=== PATIENT | male | born 1955 | race Caucasian/White ===

== ENCOUNTER 2022-12-19 09:53 | Outpatient (CLI) | payer MEDICARE, BC, OTHER, SELFPAY | END 2022-12-19 09:54 | disposition home or self-care (01) | LOC: AMB 01-07 02:06 | PROVIDERS: Visit Provider Emergency Medicine | DX: R19.7 Diarrhea, unspecified (principal); R11.0 Nausea | CPT/HCPCS: A0425; A0427 ==

== ENCOUNTER 2022-12-19 10:14 | Emergency (ER) | payer MEDICARE, BC, OTHER, SELFPAY ==
[2022-12-19] VITALS (61 sets, daily range): BP systolic 104–156; BP diastolic 65–96; PULSE 64–99; RESP 16–18; TEMP 36.9–39.1; O2SAT 83–100
--- NOTE | 2022-12-19 10:51 | ED_ITS ---
HPI - Nausea/Vomiting/Diarrhea General Chief complaint: Nausea/Vomiting Stated complaint: nausea, diarrhea Time Seen by Provider: 12/19/22 10:22 History of Present Illness HPI Narrative: This 67-year-old male comes in with his . He arrived by ambulance reporting diarrhea with nausea for the past couple days. His states that he seems like he has emesis but he does not let it out of his mouth and apparently swallows that again. He does not report any abdominal pain. He arrives with a temperature of 101.2? F. he has not felt well for a couple days. He denies having any cough or shortness of breath. He does not report any dysuria or blood in the diarrhea. He has not had any recent antibiotic treatment. He does take alcohol regularly and he has had some withdrawal symptoms in the past. He is tremulous and his states that she notes that he has some tremor when doing certain intentional maneuvers but reports that this seems more pronounced now. She has noticed increased tremors when he has not had alcohol. His last drink was a couple days ago. Related Data Home Medications Medication Instructions Recorded Confirmed No Known Home Medications 12/19/22 12/19/22 Allergies Allergy/AdvReac Type Severity Reaction Status Date / Time No Known Drug Allergies Allergy Verified 12/19/22 10:29 Review of Systems 2 Status of ROS: Reports: 10 or more systems reviewed and unremarkable except as noted in History and below Narrative: Constitutional: No weight gain or loss. Eyes: No discharge. No vision changes. HENT: No congestion, no sore throat, no ear pain. Cardiovascular: No chest pain, no palpitations. Respiratory: No shortness of breath, no wheezes, no cough. Gastrointestinal: No abdominal pain, no vomiting. Nausea and diarrhea. Genitourinary: No dysuria, no hematuria. Musculoskeletal: Normal range of motion. Skin: No rashes, no pruritis. Neurological: No dizziness, weakness, sensory change, speech change. Endo/Heme/Allergies: No bruising or bleeding. No polydipsia. Pysch: no suicidality, no anxiety, no insomnia. All other systems reviewed and are negative. Exam Narrative: Exam Narrative: Constitutional: Well-developed, well-nourished, no acute distress. HEENT: Normocephalic, atraumatic. Neck: Normal range of motion. Nontender. Supple. Heart: Regular. No murmurs. Normal rate. Intact distal pulses. Lungs: Clear to auscultation. No chest discomfort. No wheezes, rhonchi, or rales. Abdomen: Normal bowel sounds. Nontender. No rebound tenderness. Genitalia: Deferred. Back: No midline tenderness. Normal range of motion. Extremities: Normal range of motion. No injury. Skin: Intact. No rash. Warm. No erythema or pallor. Neurologic: No altered sensation. No weakness. Alert and oriented. Tremor typ ical of alcohol withdrawal symptoms. Psychiatric: No suicidality. No anxiety or depression. No insomnia. Nursing notes and vitals signs are reviewed. Const: Vital Signs, click to edit/add: Vital Signs - 24 hr 12/19/22 10:25 12/19/22 10:35 12/19/22 10:45 Temperature 101.2 F H Pulse Rate 93 92 Pulse Rate [Pulse Oximeter] 96 Respiratory Rate 16 Blood Pressure Blood Pressure [Ri ght Upper Arm] 123/94 H Pulse Oximetry 97 95 96 Oxygen Delivery La [facility]od Room Air 12/19/22 11:00 12/19/22 11:07 12/19/22 11:15 Temperature Pulse Rate 93 92 95 Pulse Rate [Pulse Oximeter] Respiratory Rate 18 Blood Pressure 147/96 H Blood Pressure [Ri ght Upper Arm] Pulse Oximetry 95 95 [facility] 12/[facility]/22 11:30 12/19/22 11:32 12/19/22 11:45 Temperature Pulse Rate 96 93 91 Pulse Rate [Pulse Oximeter] Respiratory Rate 16 Blood Pressure 133/80 Blood Pressure [Ri ght Upper Arm] Pulse Oximetry 95 93 96 [facility] 12/19/22 12:00 12/19/22 12:02 12/19/22 12:15 Temperature Pulse Rate 90 85 96 Pulse Rate [Pulse Oximeter] Respiratory Rate 16 Blood Pressure 130/75 Blood Pressure [Ri ght Upper Arm] Pulse Oximetry 95 88 94 Oxygen Delivery La thod Room Air 12/19/22 12:30 12/19/22 12:31 12/19/22 12:45 Temperature Pulse Rate 93 95 96 Pulse Rate [Pulse Oximeter] Respiratory Rate Blood Pressure 140/86 H Blood Pressure [Ri ght Upper Arm] Pulse Oximetry 93 96 94 Oxygen Delivery La thod 12/19/22 13:00 12/19/22 13:01 12/19/22 13:02 Temperature Pulse Rate 98 97 99 Pulse Rate [Pulse Oximeter] Respiratory Rate Blood Pressure 128/89 Blood Pressure [Ri ght Upper Arm] Pulse Oximetry 95 96 97 Oxygen Delivery Me thod 12/19/22 13:22 12/19/22 13:30 12/19/22 13:32 Temperature 102.4 F H Pulse Rate 97 97 Pulse Rate [Pulse Oximeter] Respiratory Rate 16 Blood Pressure 156/83 H Blood Pressure [Ri ght Upper Arm] Pulse Oximetry 90 89 Oxygen Delivery Me thod Room Air 12/19/22 13:45 12/19/22 14:00 12/19/22 14:02 Temperature Pulse Rate 95 96 93 Pulse Rate [Pulse Oximeter] Respiratory Rate Blood Pressure 134/93 H Blood Pressure [Ri ght Upper Arm] Pulse Oximetry 88 95 95 Oxygen Delivery Me thod 12/19/22 15:06 Temperature 99.7 F H Pulse Rate Pulse Rate [Pulse Oximeter] Respiratory Rate Blood Pressure Blood Pressure [Ri ght Upper Arm] Pulse Oximetry Oxygen Delivery Me thod Course Vital Signs Vital signs: Initial Vital Signs Temperature 101.2 F H 12/19/22 10:25 Temperature Source Oral 12/19/22 10:25 Pulse Rate 96 12/19/22 10:25 Respiratory Rate 16 12/19/22 10:25 Blood Pressure 123/94 H 12/19/22 10:25 Blood Pressure Mean 103 12/19/22 10:25 Blood Pressure Position Supine 12/19/22 10:25 Pulse Oximetry 97 12/19/22 10:25 Oxygen Delivery Method Room Air 12/19/22 10:25 Vital Signs Temperature 101.2 F H 12/19/22 10:25 Pulse Rate 96 12/19/22 10:25 Respiratory Rate 16 12/19/22 10:25 Blood Pressure 123/94 H 12/19/22 10:25 Pulse Oximetry 97 12/19/22 10:25 Oxygen Delivery Method Room Air 12/19/22 10:25 Temperature 99.7 F H 12/19/22 15:06 Pulse Rate 93 12/19/22 14:02 Respiratory Rate 16 12/19/22 13:32 Blood Pressure 134/93 H 12/19/22 14:02 Pulse Oximetry 95 12/19/22 14:02 Oxygen Delivery Method Room Air 12/19/22 13:32 MDM - Nausea/Vomiting/Diarrhea MDM Narrative Medical decision making narrative: This patient comes in with persistent diarrhea and nausea for the past couple days. His states that he actually is vomiting but he does not let it come out of his mouth and apparently he swallows it. He has some increased tremors which is states that are there typically when he is attempting to do certain things. She states that these generalized tremors have increased recently. He does take alcohol regularly and his last drink was a few days ago. An IV was established and he did receive a mg of Ativan which did not help much with tremors when he is awake. It did cause him to be sleepy. Seems to me that this is more of an intention tremor and not related to withdrawal. The patient arrived with the temperature of a 101.2? and did receive 600 mg of ibuprofen orally. Recheck of his temperature showed a fever of 102? F. a further recheck few hours later shows a temperature reduced at 99.7. The patient did report some abdominal pain this morning but did not currently on my exam initially. COVID, influenza, and RSV returned negative. Urinalysis also shows no sign of infection. Chest x-ray and CT imaging of the abdomen and pelvis are obtained. Chest x-ray is negative for acute cardiopulmonary disease. CT imaging report is pending at the end of my shift. The patient does present with a fever but does not have another triggered to warrant a sepsis workup. Nevertheless I did obtain blood cultures and a lactate level. His lactate returns at 1.8. Lab Data Labs: Lab Results 12/19/22 12/19/22 12/19/22 Range/Units 10:35 11:12 13:20 WBC 13.35 H (4.50-11.00) K/uL RBC 5.12 (4.30-5.90) m/uL Hgb 15.6 (13.5-17.5) gm/dL Hct 43.4 (37.0-53.0) % MCV 85 (80-100) fL MCH 31 (26-34) pg MCHC 36 (32-36) gm/dL RDW Coeff of Letty 11.4 L (11.5-15.5) % Plt Count 215 (140-440) K/uL Neut % (Auto) 69.8 (42.0-72.0) % Lymph % (Auto) 20.7 (20-44) % [place] % (Auto) 9.0 (0.0-11.0) % Eos % (Auto) 0.0 (0.0-7.0) % Baso % (Auto) 0.1 (0.0-3.0) % Neut # (Auto) 9.30 H (1.7-7.0) K/uL Lymph # (Auto) 2.80 (0.90-2.90) K/uL [place] # (Auto) 1.20 H (0.00-0.90) K/UL Eos # (Auto) 0.00 (0.00-0.50) K/uL Baso # (Auto) 0.00 (0.00-0.30) K/uL Abs Immat Gran (auto) 0.10 (0.00-0.30) K/uL Imm/Tot Granulo (auto) 0.4 % Diff Slide Review Acceptable Review (Acceptable) Sodium 129 L (135-149) mmol/L Potassium 3.6 (3.6-5.1) mmol/L Chloride 95 L (96-114) mmol/L Carbon Dioxide 23 (20-32) mmol/L Anion Gap 11 (7-15) mEq/L BUN 16 (7-30) mg/dL Creatinine 0.7 (0.5-1.5) mg/dL Estimated GFR 100 ml/min Glucose 223 H (60-115) mg/dL Lactate 1.8 (0.5-1.9) mmol/L Calcium 8.4 (8.4-10.6) mg/dL Total Bilirubin 1.5 (0.1-1.5) mg/dL Direct Bilirubin 0.1 (0.0-0.5) mg/dL AST 38 H (12-35) U/L ALT 42 (4-50) U/L Alkaline Phosphatase 56 (40-150) U/L C-Reactive Protein < 0.5 L (0.5-1.0) mg/dL Total Protein 6.9 (6.0-8.3) g/dL Albumin 4.0 (3.3-5.0) g/dL Urine Color [place] A (Yellow) Urine Appearance Clear (Clear) Urine pH 6.0 (5.0-8.5) Ur Specific [place] >= 1.030 (1.000-1.030) Urine Protein 3+ A (Negative) Urine Glucose (UA) Negative (Negative) Urine Ketones 2+ A (Negative) Urine Blood Trace-lysed A (Negative) Urine Nitrite Negative (Negative) Urine Bilirubin Negative (Negative) Urine Urobilinogen 0.2 (0.2-1.0) Ur Leukocyte Esterase Negative (Negative) Urine RBC 0-2 (0-2) Urine WBC 0-2 (0-5) Ur Squamous Epith Cells Few (None-Few) Amorphous Sediment Few A (None) Urine Bacteria Few A (None) SARS-CoV-2 (PCR) Negative SARS-CoV-2 (Negative) Influenza Type A (PCR) Negative PCR FLU A (Negative) Influenza Type B (PCR) Negative PCR FLU B (Negative) RSV (PCR) Negative PCR RSV (Negative) Imaging Data Chest x-ray: Radiologist's impression: No acute cardiopulmonary findings. Discharge Plan Discharge Clinical Impression: Fever, Gastroenteritis Patient Disposition: Admitted As Inpatient Condition: Unchanged
[2022-12-19] MEDS: LORazepam 2 MG/ML inj 1 MG IV (10:58)
[2022-12-19] MEDS: 0.9 % SODIUM CHLORIDE 1000 ml 1,000 ML IV (10:58)
[2022-12-19] MEDS: IBUPROFEN 200 MG TABLET 600 MG PO (11:04)
[2022-12-19 11:20] LABS: PCR FLU A Negative PCR FLU A (Negative); PCR FLU B Negative PCR FLU B (Negative); PCR RSV Negative PCR RSV (Negative)
[2022-12-19 11:22] LABS: Lactate* 1.8 mmol/L (0.5-1.9)
[2022-12-19 11:26] LABS: SARS PCR* Negative SARS-CoV-2 (Negative)
[2022-12-19 11:33] LABS: Basophils Percent Auto 0.1 % (0.0-3.0); Hematocrit 43.4 % (37.0-53.0); Hemoglobin* 15.6 gm/dL (13.5-17.5); Immature Granulocytes Pct Auto 0.4 %; Lymphocytes Percent Auto 20.7 % (20-44); Mean Corpuscular HGB Conc 36 gm/dL (32-36); Mean Corpuscular Hemoglobin 31 pg (26-34); Mean Corpuscular Volume 85 fL (80-100); Neutrophils Percent Auto 69.8 % (42.0-72.0); Platelet Count* 215 K/uL (140-440); RDW Coefficient of Variation % 11.4 % (11.5-15.5); Red Blood Count 5.12 m/uL (4.30-5.90); White Blood Count* 13.35 K/uL (4.50-11.00)
[2022-12-19 11:44] LABS: Chloride* 95 mmol/L (96-114)
[2022-12-19 11:45] LABS: Potassium* 3.6 mmol/L (3.6-5.1); Sodium* 129 mmol/L (135-149)
[2022-12-19 11:47] LABS: Creatinine* 0.7 mg/dL (0.5-1.5); Estimated Glomerular Filt Rate 100 ml/min
[2022-12-19 11:48] LABS: Alanine Aminotransferase* 42 U/L (4-50); Alkaline Phosphatase* 56 U/L (40-150); Anion Gap 11 mEq/L (7-15); Aspartate Amino Transferase* 38 U/L (12-35); Bilirubin Direct* 0.1 mg/dL (0.0-0.5); Bilirubin Total* 1.5 mg/dL (0.1-1.5); Blood Urea Nitrogen* 16 mg/dL (7-30); Calcium* 8.4 mg/dL (8.4-10.6); Carbon Dioxide* 23 mmol/L (20-32); Glucose* 223 mg/dL (60-115); Total Protein* 6.9 g/dL (6.0-8.3)
[2022-12-19 11:50] LABS: Slide Review Reflex Yes
[2022-12-19 11:51] LABS: Slide Review Acceptable Review (Acceptable)
[2022-12-19 11:52] LABS: C Reactive Protein* < 0.5 mg/dL (0.5-1.0)
--- NOTE | 2022-12-19 12:40 | ED.NURSE ---
Pt continues to sleep after ativan, has at BS, HR continues in 90's, sats 90's RA.
[2022-12-19 13:27] LABS: Appearance Urine Clear (Clear); Bilirubin Urine Negative (Negative); Blood Urine Trace-lysed (Negative); Color Urine Orange (Yellow); Glucose Urine Negative (Negative); Ketones Urine 2+ (Negative); Leukocyte Esterase Urine Negative (Negative); Nitrite Urine Negative (Negative); Protein Urine 3+ (Negative); Specific Gravity Urine >= 1.030 (1.000-1.030); Urobilinogen Urine 0.2 (0.2-1.0)
[2022-12-19 13:34] LABS: RBC Urine 0-2 (0-2); WBC Urine 0-2 (0-5)
[2022-12-19 13:35] LABS: Amorphous Sediment Urine Few; Bacteria Urine Few; Squamous Epithelial Cell Urine Few (None-Few)
--- NOTE | 2022-12-19 13:49 | CRLHL7_ITS ---
For Patients: As a result of the Century Cures Act, medical imaging exams and procedure reports are released immediately into your electronic medical record. You may view this report before your referring provider. If you have questions, please contact your health care provider. INDICATION: Abdominal pain; diarrhea. Comparison: None. TECHNIQUE: CT abdomen and pelvis with intravenous contrast; coronal and sagittal reformats. FINDINGS: No abnormal intra pulmonary nodular densities through the lung bases. No evidence of pleural effusion. Normal size cardiac silhouette without any pericardial effusion. No focal hepatic or splenic pathology. No pancreatic pathology. Gallbladder is unremarkable. Calcifications identified in the left adrenal gland probably due to old hemorrhage. No adrenal pathology. A 2 mm nonobstructing calculus lower pole calyx right kidney. No obstructive uropathy or perinephric pathology. A 2.7 x 2.3 cm soft tissue mass left retroperitoneum slice 97 series 2. Small left periaortic lymph nodes identified. Enlarged prostate gland with distended urinary bladder. Redundant sigmoid colon. Diverticulosis sigmoid colon without any CT evidence of diverticulitis or abscess. Disc space narrowing and disc degeneration at L4-5. Obliteration of the disc space at T8-T9 ; Rule out chronic infection like discitis. Moderate narrowing of the disc space at T9-10. IMPRESSION: 1. A 2.7 x 2.3 cm mass left retroperitoneum; rule out pathologically enlarged lymph node; this is amenable for CT guided biopsy; PET-CT may be of help. 2. Obliteration of the disc space at T8-T9; rule out discitis. 3. Distended urinary bladder with enlarged prostate gland. Please note that all CT scans at this facility use dose modulation, iterative reconstruction, and/or weight-based dosing when appropriate to reduce radiation dose to as low as reasonably achievable. Dictated by Tony Barclay MD @ 12/19/2022 4:31:32 PM (Electronically Signed)
--- NOTE | 2022-12-19 13:50 | CRLHL7_ITS ---
For Patients: As a result of the Century Cures Act, medical imaging exams and procedure reports are released immediately into your electronic medical record. You may view this report before your referring provider. If you have questions, please contact your health care provider. INDICATION: Diarrhea, pain. TECHNIQUE: Chest 1 view. COMPARISON: Chest radiograph 07/28/2017. FINDINGS: Low lung volumes with minimal bibasilar atelectasis and vascular crowding. No focal consolidation, pleural effusion, or pneumothorax. The cardiac silhouette appears mildly enlarged but may be exaggerated by portable technique. Mild elevation of the right hemidiaphragm. The bones are unremarkable. IMPRESSION: No acute cardiopulmonary findings. Dictated by Ange Dinero MD @ 12/19/2022 3:24:23 PM (Electronically Signed)
[2022-12-19] MEDS: ACETAMINOPHEN 500 MG TABLET 1000 MG PO (15:06)
--- NOTE | 2022-12-19 16:30 | ED.NURSE ---
Pt noted to have large bladder on CT scan. Dr. Aguilar notified. He requested bladder scan of pt. Pt bladder scanned for 931mL in the bladder at 1615. Dr. Aguilar notified and catheter placement ordered by provider.
[2022-12-19 17:18] LABS: Lactate* 0.9 mmol/L (0.5-1.9)
[2022-12-19] MEDS: CEFEPIME HCL 2 GM in 0.9 % SODIUM CHLORIDE Mini-bag 100 ML IVPB (17:46)
--- NOTE | 2022-12-19 18:14 | CRLHL7_ITS ---
For Patients: As a result of the Century Cures Act, medical imaging exams and procedure reports are released immediately into your electronic medical record. You may view this report before your referring provider. If you have questions, please contact your health care provider. Indication: Altered mental status, history of diabetes, discitis Technique: Volumetric multidetector CT images of the head were obtained without the administration of low osmolar intravenous contrast. Comparison: None available Findings: There is no intra-axial or extra-axial fluid collection. There is no mass effect or midline shift. There is age-related cortical atrophy with mild sulcal widening and ex vacuo dilatation of the lateral ventricles. There are chronic small vessel disease changes in the subcortical and periventricular white matter without lost jimenez-white differentiation. The orbits and their contents are grossly within normal limits. The bony calvarium is grossly intact. The paranasal sinuses are clear. The mastoid air cells are well aerated. Impression: 1. Age-related changes of the brain without acute intracranial abnormality. Findings were discussed with Dr. Aguilar at 7 p.m. December 19, 2022 Please note that all CT scans at this facility use dose modulation, iterative reconstruction, and/or weight-based dosing when appropriate to reduce radiation dose to as low as reasonably achievable. Dictated by Delvin Escobar MD @ 12/19/2022 7:00:22 PM (Electronically Signed)
--- NOTE | 2022-12-19 18:36 | ED.NURSE ---
18Fr Coude vanessa placed @ 1730 under sterile technique. Pt tolerated procedure well. 30cc Normal Saline insterted into catheter balloon. Return of lolis colored cloudy urine noted in tube. 1000mL emptied after first 15minutes of Vanessa placement. Dr. Aguilar notified.
== END 2022-12-19 20:00 | disposition other institution (70) ==
PROVIDERS: Emergency Medicine Emergency Medical Services; Emergency Provider Emergency Medicine
DX: M46.40 Discitis, unspecified, site unspecified (principal); R41.82 Altered mental status, unspecified
CPT/HCPCS: 36415; 70450; 71045; 74177; 80048; 80076; 81001; 83605; 85025; 86140; 87040; 87086; 87631; 96361; 96374; 96375; 99285; A9270; J0692; J2060; J3370; J7030; J7120; Q9967

== ENCOUNTER 2022-12-19 19:45 | Outpatient (CLI) | payer MEDICARE, BC, OTHER, SELFPAY | END 2022-12-19 19:46 | disposition home or self-care (01) | LOC: AMB 01-07 11:15 | PROVIDERS: Visit Provider Emergency Medicine | DX: R50.9 Fever, unspecified (principal); K52.9 Noninfective gastroenteritis and colitis, unspecified; R00.0 Tachycardia, unspecified | CPT/HCPCS: A0425; A0427 ==

== ENCOUNTER 2023-04-07 13:45 | Outpatient (RCR) | payer MEDICARE, BC, SELFPAY | END 2023-04-28 11:34 | disposition home or self-care (01) | PROVIDERS: Visit Provider Physical Medicine & Rehabilitation | DX: A92.31 West Nile virus infection with encephalitis; H81.90 Unspecified disorder of vestibular function, unspecified ear; R26.81 Unsteadiness on feet; Z51.89 Encounter for other specified aftercare | CPT/HCPCS: 92507; 92523; 97110; 97112; 97163; 97165; 97535 ==

== ENCOUNTER 2023-12-22 10:10 | Outpatient (CLI) | payer MEDICARE, BC, SELFPAY ==
--- NOTE | 2023-12-22 11:19 | W.ANESCHARGE ---
Anesthesia Charges Start Date/Time Anesthesia Start Date: 12/22/23 Anesthesia Start Time: 11:03 Stop Date/Time Anesthesia Stop Date: 12/22/23 Anesthesia Stop Time: 11:38
--- NOTE | 2023-12-22 11:41 | W.ANESCHARGE ---
Anesthesia Charges Start Date/Time Anesthesia Start Date: 12/22/23 Anesthesia Start Time: 11:03 Stop Date/Time Anesthesia Stop Date: 12/22/23 Anesthesia Stop Time: 11:38
== END 2023-12-22 10:11 | disposition home or self-care (01) ==
LOC: OP CLINIC 10:14
PROVIDERS: PCP Neuromusculoskeletal Medicine & OMM; Visit Provider Surgery
DX: Z12.11 Encounter for screening for malignant neoplasm of colon (principal); D12.0 Benign neoplasm of cecum; D12.5 Benign neoplasm of sigmoid colon; K55.20 Angiodysplasia of colon without hemorrhage; Z86.010 Personal history of colon polyps
CPT/HCPCS: 00811; 45385; 88305; J2704

== ENCOUNTER 2024-01-13 08:29 | Outpatient (CLI) | payer MEDICARE, BC, SELFPAY ==
--- NOTE | 2024-01-13 09:00 | CRLHL7_ITS ---
For Patients: As a result of the Century Cures Act, medical imaging exams and procedure reports are released immediately into your electronic medical record. You may view this report before your referring provider. If you have questions, please contact your health care provider. Indication: Abdominal mass Technique: Postcontrast CT of the chest, abdomen, and pelvis with multiplanar reformats following 82 mL Isovue 370 IV. Comparison: CT abdomen pelvis performed 12/19/2022 Findings: Chest: Lungs: There is a lobulated peripheral nodule in the right upper lobe measuring 1.8 x 1.4 centimeters, no prior examination available for comparison. A few additional smaller nodules noted. Mediastinum: Calcified coronary arterial and aortic atherosclerosis. Lymph nodes: No gross lymphadenopathy. Soft tissues: Unremarkable. Bones: Degenerative changes of the spine. Abdomen and Pelvis: Hepatobiliary: No significant parenchymal abnormality is appreciated. Spleen: Unremarkable. Pancreas: Unremarkable. Adrenal glands: Partially calcified left adrenal gland, unchanged. Kidneys: No significant parenchymal abnormality appreciated. No visualized calculi. No hydronephrosis. Bowel: No obstruction. No focal perienteric or pericolonic stranding is appreciated. The appendix is visualized and appears unremarkable. Vascular: Calcified and noncalcified atherosclerosis. Lymph nodes: Left para-aortic lesion, possibly an enlarged lymph node, measures 2.4 x 2.1 centimeters, previously 2.5 x 2.2 centimeters, appearing not significantly changed. Additional shotty retroperitoneal nodes are noted, also unchanged. No new or worsening lymphadenopathy appreciated. Peritoneum: No free air. No free fluid. : Prostatomegaly. Right hydrocele. Soft tissues: Unremarkable. Bones: Degenerative changes of the spine and pelvis. Impression: 1. There is a lobulated nodule in the right upper lobe of the lung measuring 1.8 centimeters, no prior examination available for comparison. Recommend tissue sampling, PET-CT, or three-month interval follow-up chest CT for further evaluation. 2. No significant change in the appearance of a left periaortic lesion, possibly an enlarged lymph node. Additional shotty nodes appear unchanged with no new or worsening lymphadenopathy. 3. Calcified coronary arterial and aortic atherosclerosis. Please note that all CT scans at this facility use dose modulation, iterative reconstruction, and/or weight-based dosing when appropriate to reduce radiation dose to as low as reasonably achievable. Dictated by Kevin Evangelista MD @ 01/16/2024 8:32:03 PM (Electronically Signed)
[2024-01-13 09:37] LABS: Creatinine* 0.6 mg/dL (0.5-1.5); Estimated Glomerular Filt Rate 104 ml/min
== END 2024-01-13 08:30 | disposition home or self-care (01) ==
LOC: CT 08:30
PROVIDERS: PCP Neuromusculoskeletal Medicine & OMM; Visit Provider Neuromusculoskeletal Medicine & OMM
DX: R19.00 Intra-abdominal and pelvic swelling, mass and lump, unspecified site (principal); R91.1 Solitary pulmonary nodule; I70.0 Atherosclerosis of aorta; I25.10 Atherosclerotic heart disease of native coronary artery without angina pectoris
CPT/HCPCS: 36415; 71260; 74177; 82565; Q9967

== ENCOUNTER 2024-04-13 07:31 | Outpatient (CLI) | payer MEDICARE, BC, SELFPAY ==
--- OUTSIDE RECORDS SUMMARY | 2024-04-12 16:31 | XMS_ITS | Clinical Summary ---
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 90 tablet 3 8 Active metFORMIN (GLUCOPHAGE) 500 mg tabletIndications: Diabetes mellitus without complication (HC) TAKE TWO TABLETS BY MOUTH TWICE A DAY WITH MEALS 120 tablet 5 8 Active lisinopril (PRINIVIL; ZESTRIL) 10 mg tabletIndications: Hypertension, unspecified type Take 1 tablet by mouth once daily. Patient will call when he needs medications. 90 tablet 1 8 Active Active Problems Problem Noted Date Diagnosed Date HTN (hypertension) 09/02/2017 DIABETES 03/12/2002 Immunizations Name Administration Dates Next Due Td (Age >=7 Years) 07/28/2017 Social History Tobacco Use Types Packs/Day Years Used Date Smoking Tobacco: Never Smokeless Tobacco: Never Tobacco Cessation:Counseling Given: Yes Alcohol Use Standard Drinks/Week Comments Yes 7 (1 standard drink = 0.6 oz pur e alcohol) scotch daily PHQ-2 Answer Date Recorded PHQ-2 Score 0 06/11/2018 Sex and Gender Information Value Date Recorded Sex Assigned at Not on file Legal Sex Male 5:46 AM [employer] Gender Identity Not on file Sexual Orientation Not on file Obstetrics History Last Filed Vital Signs Vital Sign Reading Time Taken Comments Blood Pressure 133/85 02/01/2018 3:56 PM CDT 2nd bp Pulse 85 02/01/2018 3:54 PM CDT Temperature 36.9 C (98.4 F) 09/02/2017 8:28 AM CDT Respiratory Rate - - Oxygen Saturation 95% 02/01/2018 3:54 PM CDT Inhaled Oxygen Concentration - - Weight 86.5 kg (190 lb 12.8 oz) 02/01/2018 3:54 PM CDT Height 174 cm (5' 8.5) 02/01/2018 3:54 PM CDT Body Mass Index 28.59 02/01/2018 3:54 PM CDT Plan of Treatment Health Maintenance Due Date Last Done Comments Tdap 1965 Hepatitis C screening for age 18-79 1972 Colonoscopy through age 75 09/25/1999 Pneumococcal series for age 50+ (1 of 1 - PCV) 2004 Zoster (shingles) series for age 50+ (1 of 2) 2004 BMI (ht and wt on same day) for age 18+ 02/01/2019 02/01/2018, 09/02/2017 Depression screening for age 12+ 02/01/2019 02/02/20 18 Lipids for age 45-75 02/01/2023 02/01/2018, 08/10/2017, 01/31/2007 COVID-19 vaccine series ( - 2023- season) 2023 Influenza for age 65+ 12/11/2023 Tetanus booster 07/29/2027 07/28/2017 RSV vaccine for adults or pr egnancy (1 - 1-dose 75+ series) 2029 Procedures Procedure Name Priority Date/Time Associated Diagnosis Comments LIPID PANEL W REFLEX MEASURED LDL Routine 02/01/2018 3:50 PM CDT DIABETES from Last 3 Months or Most Recently Relevant to Health Maintenance Results * (ABNORMAL) LIPID PANEL W REFLEX MEASURED LDL (02/01/2018 3:50 PM CDT) CHOLESTEROL,TOTAL 171 100 - 199 mg/dL 02/01/2018 9:23 PM CDT [facility] TRIGLYCERIDES 127 <150 mg/dL 02/01/2018 9:23 PM CDT [facility] HDL CHOLESTEROL 38(L) >40 mg/dL 8 9:23 PM CDT [facility] NON-HDL CHOLESTEROL 133 <145 mg/dl 02/01/2018 9:23 PM CDT [facility] CHOL/HDL RATIO 4.50(H) <4.50 02/01/2018 9:23 PM CDT [facility] LDL CHOLESTEROL 108 <=130 mg/dL 02/01/2018 9:23 PM CDT [facility] PROVIDER ORDERED STATUS RANDOM 02/01/2018 9:23 PM CDT [facility] Blood BLOOD SPECIMEN / Unknown Add On / Unknown 02/01/2018 3:50 PM CDT 02/01/2018 4:22 PM CDT us Dick Castro MD CHEMISTRY Final Re s[facility] [address] [place] [address], [place] from Last 3 Months or Most Recently Relevant to Health Maintenance Insurance [facility] Care Teams Manifest/Order Organizer Print Orders Relationship Specialty Start Date End Date Unknown, Doctor . PCP - General 12/27/08
--- NOTE | 2024-04-13 08:00 | CRLHL7_ITS ---
For Patients: As a result of the Century Cures Act, medical imaging exams and procedure reports are released immediately into your electronic medical record. You may view this report before your referring provider. If you have questions, please contact your health care provider. Indication: abdominal mass hx of [place] Technique: CT chest abdomen pelvis with Isovue 370 86cc contrast and water prep Please note that all CT scans at this facility use dose modulation, iterative reconstruction, and/or weight-based dosing when appropriate to reduce radiation dose to as low as reasonably achievable. Comparison: 01/13/2024 Findings: In the chest, visualized thyroid is within normal limits. No enlarged lymph nodes. Unchanged 1.8 cm nodule within the right upper lobe with adjacent smaller nodules. Stable 3 millimeter nodule is present within the left lower lobe. No pleural effusion or infiltrate. Mild dependent atelectasis/scarring. Severe degenerative changes are present within the lower thoracic spine with extensive discogenic sclerosis/cyst formation. No vertebral body compression fracture. In the abdomen, there is no intrahepatic mass. The gallbladder is normal. Normal spleen. Chronic calcifications associated with the left adrenal gland. Normal right adrenal gland. No hydronephrosis or solid renal mass. Gallbladder is normal. No calcified gallstones. No biliary obstruction. Normal pancreas. Left para-aortic soft tissue mass is similar measuring 2.1 x 2.5 cm. Normal ureters. In the pelvis, the bladder is distended. Vascular calcifications are present. No bladder stone. Prostate is heterogeneous with a stable sub cm hypodensity superiorly. Similar appearance of the scrotum. No bowel obstruction, free air, free fluid or abscess. Normal appendix. Normal inguinal lymph nodes. Degenerative disc disease L4-5. No vertebral body compression fracture. Impression: No significant interval change in the left para-aortic soft tissue mass measuring 2.5 cm. No significant interval change regarding the 1.8 cm right upper lobe pulmonary nodule. CT PET again recommended. Please note that all CT scans at this facility use dose modulation, iterative reconstruction, and/or weight-based dosing when appropriate to reduce radiation dose to as low as reasonably achievable. Dictated by Олег Ellis MD @ 04/13/2024 1:09:35 PM (Electronically Signed)
[2024-04-13 08:04] LABS: Creatinine* 0.7 mg/dL (0.5-1.5); Estimated Glomerular Filt Rate 100 ml/min
== END 2024-04-13 07:32 | disposition home or self-care (01) ==
LOC: CT 07:35
PROVIDERS: PCP Neuromusculoskeletal Medicine & OMM; Visit Provider Neuromusculoskeletal Medicine & OMM
DX: R19.00 Intra-abdominal and pelvic swelling, mass and lump, unspecified site (principal)
CPT/HCPCS: 36415; 71260; 74177; 82565; Q9967